=== PATIENT | female | born 1960 | race Caucasian/White ===

== ENCOUNTER 2019-02-02 18:12 | Emergency (ER) | payer OTHER ==
[~2019-02-02] VITALS: Ht 154.9 cm; Wt 83.9 kg
[2019-02-02] MEDS ORDERED: AMARYL4 MG PO (20:05)
[2019-02-02] MEDS ORDERED: COZAAR 25 MG TA25 M1 PO (20:06)
[2019-02-02] MEDS ORDERED: LIPITOR 20 MG T20 M1 PO (20:06)
[2019-02-02] MEDS ORDERED: OZEMPIC0.25 MG/0. SUBQ (20:07)
[2019-02-02 20:08] LABS: ABSOLUTE NEUTROPHILS 7.2 thou/uL (1.4-8.2); EOSINOPHILS 4.5 % (0.0-3.0); HEMATOCRIT 39.2 % (37.0-47.0); HEMOGLOBIN 13.5 gm/dL (12.0-15.0); LYMPHOCYTES 27.6 % (24.0-44.0); MCH 29.5 pg (26.0-34.0); MCHC 34.4 g/dL (28.0-37.0); MCV 85.7 fL (80.0-100.0); MONOCYTES 6.4 % (1.0-8.0); PLATELET COUNT 333 thou/uL (150-400); POLYS 60.5 % (36.0-66.0); RBC 4.58 mil/uL (4.20-5.00); RDW 13.9 % (10.5-14.5)
[2019-02-02 20:16] LABS: ANION GAP 12 mmol/L (7-16); BUN 17 mg/dL (7-18); CALCIUM 9.6 mg/dL (8.5-10.1); CHLORIDE 99 mmol/L (98-107); CO2 25 mmol/L (21-32); CREATININE 0.6 mg/dL (0.6-1.0); GLUCOSE 149 mg/dL (74-106); POTASSIUM 3.7 mmol/L (3.5-5.1); SODIUM 136 mmol/L (136-145)
[2019-02-02 20:25] LABS: TROPONIN-I <0.06 ng/mL (<0.06)
[2019-02-02 22:06] VITALS: BP 165/89
--- NOTE | 2019-02-03 07:20 | EKG ---
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 : 1960 Requested By: Azam Arzola Order Number: [id number] MD: Calderon Tidwell Measurements Intervals [place] Rate: 83 P: 57 DE: 140 QRS: 9 QRSD: 82 T: 29 QT: 375 QTc: 441 Interpretive Statements Sinus rhythm RSR' in V1 or V2, probably normal variant No previous ECG available for comparison Electronically Signed On 02-03-2019 7:20:13 CDT by Calderon Tidwell [email or web address] ��������������������������������������������� <ELECTRONICALLY SIGNED> ���������������������������������������� By: Calderon Tidwell MD, [facility] ��������������������������������������������� 02/03/19 0720 192 20 Calderon Tidwell MD, FACC /EPI
== END 2019-02-02 22:20 | disposition home or self-care (01) ==
LOC: ER 18:12
PROVIDERS: Emergency Medicine
DX: R07.0 Pain in throat (principal); Z88.5 Allergy status to narcotic agent; Z88.2 Allergy status to sulfonamides; Z90.710 Acquired absence of both cervix and uterus